=== PATIENT | female | born 1940 | race Caucasian/White ===

== ENCOUNTER → 2017-08-07 | Outpatient (REF) | payer MEDICARE, OTHER ==
[2017-08-07 12:23] LABS: BASO % 0.5 % (0.0-1.0); EOS # 0.5 10^3/uL (0.0-0.50); EOS % 9.4 % (0.0-3.0); IMMATURE GRANULOCYTE % 0.2 % (0-0); LYMPH # 2.2 10^3/uL (1.5-4.5); LYMPH % 39.8 % (24.0-44.0); MEAN CORPUSCULAR HEMOGLOBIN 31.2 pg (27.0-33.0); MEAN CORPUSCULAR HGB CONC 32.5 g/dl (32.0-36.5); MEAN CORPUSCULAR VOLUME 95.9 fl (80.0-96.0); MONO # 0.4 10^3/uL (0.0-0.8); MONO % 6.5 % (0.0-5.0); NEUTROPHILS # 2.4 10^3/uL (1.8-7.7); NEUTROPHILS % 43.6 % (36.0-66.0); PLATELET COUNT, AUTOMATED 271 10^3/uL (150-450); RED CELL DISTRIBUTION WIDTH 14.2 % (11.5-14.5); WHITE BLOOD COUNT 5.5 10^3/uL (4.0-10.0)
[2017-08-07 13:17] LABS: ALBUMIN 3.6 GM/DL (3.2-5.2); ALBUMIN/GLOBULIN RATIO 1.03 (1.00-1.93); ALKALINE PHOSPHATASE 99 U/L (45-117); ALT/SGPT 29 U/L (12-78); ANION GAP 7 MEQ/L (8-16); AST/SGOT 16 U/L (15-37); BILIRUBIN,TOTAL 0.4 MG/DL (0.2-1.0); BLOOD UREA NITROGEN 16 MG/DL (7-18); CALCIUM LEVEL 9.1 MG/DL (8.8-10.2); CARBON DIOXIDE LEVEL 29 MEQ/L (21-32); CHLORIDE LEVEL 104 MEQ/L (98-107); CHOLESTEROL LEVEL 206 MG/DL (<200); GLOMERULAR FILTRATION RATE > 60.0 (>39); GLUCOSE, FASTING 99 MG/DL (83-110); POTASSIUM SERUM 4.1 MEQ/L (3.5-5.1); SODIUM LEVEL 140 MEQ/L (136-145); TOTAL PROTEIN 7.1 GM/DL (6.4-8.2); TRIGLYCERIDES LEVEL 199 MG/DL (<150)
== END ==
LOC: M LABDRAW1 10:52
PROVIDERS: ATTEND Family Medicine
DX: E78.2 Mixed hyperlipidemia (principal); M81.8 Other osteoporosis without current pathological fracture; E55.9 Vitamin D deficiency, unspecified

== ENCOUNTER 2018-02-15 17:35 | Emergency (ER) | payer MEDICARE, OTHER ==
[2018-02-15 18:53] LABS: BASO % 0.1 % (0.0-1.0); HEMATOCRIT 38.7 % (36.0-47.0); HEMOGLOBIN 13.2 g/dl (12.0-15.5); IMMATURE GRANULOCYTE % 0.5 % (0-3.0); LYMPH # 0.7 10^3/uL (1.5-4.5); MEAN CORPUSCULAR HEMOGLOBIN 32.1 pg (27.0-33.0); MEAN CORPUSCULAR HGB CONC 34.1 g/dl (32.0-36.5); MEAN CORPUSCULAR VOLUME 94.2 fl (80.0-96.0); MONO # 0.5 10^3/uL (0.0-0.8); MONO % 5.1 % (0.0-5.0); NEUTROPHILS # 8.3 10^3/uL (1.8-7.7); NEUTROPHILS % 87.3 % (36.0-66.0); PLATELET COUNT, AUTOMATED 178 10^3/uL (150-450); RED BLOOD COUNT 4.11 10^6/uL (4.00-5.40); WHITE BLOOD COUNT 9.5 10^3/uL (4.0-10.0)
[2018-02-15 19:14] LABS: ALBUMIN 3.6 GM/DL (3.2-5.2); ALBUMIN/GLOBULIN RATIO 0.95 (1.00-1.93); ALKALINE PHOSPHATASE 69 U/L (45-117); ALT/SGPT 21 U/L (12-78); ANION GAP 5 MEQ/L (8-16); AST/SGOT 18 U/L (7-37); BILIRUBIN,DIRECT 0.1 MG/DL (0.0-0.2); BILIRUBIN,TOTAL 0.6 MG/DL (0.2-1.0); BLOOD UREA NITROGEN 19 MG/DL (7-18); CALCIUM LEVEL 8.9 MG/DL (8.8-10.2); CARBON DIOXIDE LEVEL 29 MEQ/L (21-32); CHLORIDE LEVEL 105 MEQ/L (98-107); GLOMERULAR FILTRATION RATE 57.5 (>39); GLUCOSE, FASTING 130 MG/DL (70-100); SODIUM LEVEL 139 MEQ/L (136-145); THYROID STIMULATING HORMONE 0.744 uIU/ML (0.358-3.740); TOTAL PROTEIN 7.4 GM/DL (6.4-8.2)
[2018-02-15] MEDS: NS 500 ML IV (20:05)
[2018-02-15 22:31] LABS: KETONE, URINE AUTO RFX NEGATIVE (NEGATIVE); MUCUS, URINE RFX LARGE (NEGATIVE); NITRITE, URINE AUTO RFX NEGATIVE (NEGATIVE); RBC, URINE AUTO RFX 5 /HPF (0-3); SPECIFIC GRAVITY UR AUTO RFX 1.026 (1.002-1.035); SQUAM EPITHELIAL CELL UR AURFX 0 /HPF (0-6); WBC, URINE AUTO RFX 2 /HPF (0-3)
[2018-02-15 22:32] LABS: LEUKOCYTE ESTERASE UR AUTO RFX TRACE (NEGATIVE)
[2018-02-15] MEDS: CIPROFLOXACIN 500 MG TAB PO (23:45)
[2018-02-16 02:52] LABS: BEDSIDE GLUCOSE 118 MG/DL (83-110)
== END 2018-02-15 23:53 | disposition home or self-care (01) ==
LOC: M ED 17:35
DX: N39.0 Urinary tract infection, site not specified (principal); I45.19 Other right bundle-branch block; F41.1 Generalized anxiety disorder; F33.9 Major depressive disorder, recurrent, unspecified; Z79.899 Other long term (current) drug therapy; Z88.5 Allergy status to narcotic agent; F17.210 Nicotine dependence, cigarettes, uncomplicated
CPT/HCPCS: 71046

== ENCOUNTER → 2018-07-26 | Outpatient (REF) | payer MEDICARE ==
[2018-07-26 13:25] LABS: BASO % 0.5 % (0.0-1.0); EOS # 0.2 10^3/uL (0.0-0.50); EOS % 3.6 % (0.0-3.0); HEMATOCRIT 39.3 % (36.0-47.0); HEMOGLOBIN 12.9 g/dl (12.0-15.5); IMMATURE GRANULOCYTE % 0.3 % (0-3.0); LYMPH # 2.6 10^3/uL (1.5-4.5); LYMPH % 42.6 % (24.0-44.0); MEAN CORPUSCULAR HEMOGLOBIN 32.7 pg (27.0-33.0); MEAN CORPUSCULAR HGB CONC 32.8 g/dl (32.0-36.5); MEAN CORPUSCULAR VOLUME 99.5 fl (80.0-96.0); MONO # 0.5 10^3/uL (0.0-0.8); MONO % 8.1 % (0.0-5.0); NEUTROPHILS # 2.8 10^3/uL (1.8-7.7); NEUTROPHILS % 44.9 % (36.0-66.0); PLATELET COUNT, AUTOMATED 235 10^3/uL (150-450); RED BLOOD COUNT 3.95 10^6/uL (4.00-5.40); RED CELL DISTRIBUTION WIDTH 13.1 % (11.5-14.5); WHITE BLOOD COUNT 6.2 10^3/uL (4.0-10.0)
[2018-07-26 13:42] LABS: ALBUMIN/GLOBULIN RATIO 1.25 (1.00-1.93); ALKALINE PHOSPHATASE 70 U/L (45-117); ALT/SGPT 28 U/L (12-78); ANION GAP 5 MEQ/L (8-16); AST/SGOT 21 U/L (7-37); BILIRUBIN,TOTAL 0.4 MG/DL (0.2-1.0); BLOOD UREA NITROGEN 25 MG/DL (7-18); CALCIUM LEVEL 8.9 MG/DL (8.8-10.2); CARBON DIOXIDE LEVEL 28 MEQ/L (21-32); CHLORIDE LEVEL 110 MEQ/L (98-107); CREATININE FOR GFR 0.82 MG/DL (0.55-1.30); GLOMERULAR FILTRATION RATE > 60.0 (>39); GLUCOSE, FASTING 95 MG/DL (70-100); POTASSIUM SERUM 4.6 MEQ/L (3.5-5.1); RHEUMATOID FACTOR QUANT < 10.0 IU/ML (<15.0); SODIUM LEVEL 143 MEQ/L (136-145); TOTAL PROTEIN 7.2 GM/DL (6.4-8.2)
[2018-07-26 14:10] LABS: ESTIMATED AVERAGE GLUCOSE 111 MG/DL (60-110); HEMOGLOBIN A1c 5.5 %
[2018-07-26 14:15] LABS: ERYTHROCYTE SEDIMENTATION RATE 25 mm/hr (0-30)
[2018-07-26 15:51] LABS: FOLATE > 24.0 NG/ML
[2018-07-28 14:13] LABS: VITAMIN E(ALPHA TOCOPHEROL) 19.6 mg/L (9.0-29.0); VITAMIN E(GAMMA TOCOPHEROL) 1.4 mg/L (0.5-4.9)
[2018-07-30 00:06] LABS: ANTINUCLEAR ANTIBODIES DIRECT Negative (Negative); COPPER PLASMA 125 ug/dL (72-166); LEAD BLOOD ADULT <1 ug/dL (0-4); MERCURY LEVEL 1.2 ug/L (0.0-14.9)
[2018-07-30 09:51] LABS: DRVV SCREEN 38.1 SEC
[2018-07-30 10:05] LABS: PTT LUPUS TYPE ANTICOAG SCREEN 0.9 (0-1.2)
[2018-07-30 13:42] LABS: ALBUMIN 4.52 GM/DL (3.29-5.55); ALBUMIN % 62.8 % (55.8-66.1); ALPHA-1-GLOBULIN % 3.9 % (2.9-4.9); ALPHA-1-GLOBULINS 0.28 GM/DL (0.17-0.41); ALPHA-2-GLOBULINS 0.68 GM/DL (0.42-0.99); ALPHA-2-GLOBULINS % 9.4 % (7.1-11.8); BETA-1-GLOBULINS 0.48 GM/DL (0.28-0.60); BETA-1-GLOBULINS % 6.6 % (4.7-7.2); BETA-2-GLOBULINS 0.37 GM/DL (0.19-0.55); BETA-2-GLOBULINS % 5.1 % (3.2-6.5); GAMMA GLOBULIN % 12.2 % (11.1-18.8); GAMMA GLOBULINS 0.88 GM/DL (0.65-1.58)
[2018-07-31 08:48] LABS: CERULOPLASMIN 29.4 mg/dL (19.0-39.0); VITAMIN B1 LEVEL WHOLE BLOOD 166.8 nmol/L (66.5-200.0)
== END ==
LOC: M LABNEURO 09:19
DX: G62.9 Polyneuropathy, unspecified (principal)
CPT/HCPCS: 82525

== ENCOUNTER → 2018-08-29 | Outpatient (REF) | payer MEDICARE | LOC: M LAB REF 13:42 | DX: R35.0 Frequency of micturition (principal); R30.0 Dysuria | CPT/HCPCS: 87186 ==

== ENCOUNTER 2018-12-09 07:17 | Day surgery (SDC) | payer MEDICARE ==
[~2018-12-09] VITALS: Ht 157.5 cm; Wt 77.3 kg
[~2018-12-09 07:17] MED LIST: ARTI99.0 OU; AZOP0.2S OD; BIMA01SOL OU; BUPR150T5; BUPR15TASR PO; CEFD300CAP PO; CIPR-249 PO; LIDOCAINE 2% INJ 100 MG/5 ML SDV (FOR ANES.) As Ordered ONE; LR 1,000 ML IV ONE; MIDAZOLAM INJ 2 MG/2 ML VIAL (J2250) As Ordered ONE; ONDANSETRON 4MG/2ML VIAL (J2405) As Ordered ONE; PROPOFOL 200 MG/20 ML VIAL As Ordered ONE; ROCURONIUM BROMIDE 50 MG/5 ML VIAL As Ordered ONE; SERT-138; SERT-138 PO; SYST1SOL OU; TIMO0.5S29 OD; VITA200016 PO; VITMTA PO; dexameTHASONE 4 MG/ML 1ML VIAL (J1100) As Ordered ONE; fentaNYL 100 MCG/2 ML INJECTION (J3010) As Ordered ONE
[2018-12-09] MEDS ORDERED: BUPIVACAINE/EPIN 0.25% 30 ML VIAL As Ordered ONE (08:32)
[2018-12-09] MEDS ORDERED: ePHEDrine SULFATE 25 MG/5 ML(5MG/ML) SYRINGE As Ordered ONE (09:03)
[2018-12-09] MEDS ORDERED: PHENYLephrine HCL 500 MCG/5 ML (100MCG/ML) SYRINGE (J2370) As Ordered ONE (09:03)
[2018-12-09] MEDS ORDERED: SUGAMMADEX SODIUM 500 MG/5 ML VIAL (BRIDION) As Ordered ONE (09:08)
[2018-12-09] MEDS ORDERED: fentaNYL 100 MCG/2 ML INJECTION (J3010) IV PRN (10:00)
[2018-12-09] MEDS ORDERED: HYDROMORPHONE HCL 0.5 MG/ 0.5 ML SYRINGE (J1170 PER 1) IV PRN (10:00)
[2018-12-09] MEDS ORDERED: LR 1,000 ML IV SCH (10:00)
[2018-12-09] MEDS ORDERED: NORCO, ANEXSIA 5/325MG TABLET (HYDROcodone/ACETAMINOPHEN) PO PRN (10:00)
[2018-12-09] MEDS ORDERED: PERCOCET 5MG/325MG TAB PO PRN (10:00)
[2018-12-09 12:15] VITALS: BP 146/69
--- NOTE | 2018-12-10 16:54 | RO ---
DATE OF PROCEDURE: 12/09/2018 PREOPERATIVE DIAGNOSIS: Symptomatic cholelithiasis. POSTOPERATIVE DIAGNOSIS: Symptomatic cholelithiasis. PROCEDURE: Laparoscopic cholecystectomy. SURGEON: Dr. Conteh CARTRIDGE FILLER: Dr. Gonzalez who assisted with retraction and visualization of the gallbladder. ANESTHESIA: General. ESTIMATED BLOOD LOSS: 5. COMPLICATIONS: None. INDICATIONS FOR PROCEDURE: The patient is a 78-year-old female presents status post choledocholithiasis with ERCP while she was inpatient hospital. She still having persistent right upper quadrant abdominal pains and right shoulder pain. Recommendation was to proceed with laparoscopic possible open cholecystectomy. Risks and benefits of the procedure not limited but including bleeding, infection, hernia formation, damage to surrounding structure need for further surgery were discussed in detail with the patient and informed consent was obtained procedure was planned. PROCEDURE: The patient brought back to operating room two. After sufficient sedation, the abdomen sterilely prepped and draped. Next time-out was done confirm proper patient and proper procedure. Following that a stab incision was made in the left upper quadrant. Veress needle was inserted and the abdomen was insufflated to 50 mmHg. Next Veress needle was removed and 5 mm Optiview port used to gain access to the abdomen supraumbilically in the midline. An 11 mm port was then placed subxiphoid and two 5 mm ports in the right upper quadrant. The fundus of gallbladder grasped, elevated up towards right shoulder. Cystic duct and cystic artery were easily identified and they are both doubly clipped and cut. Gallbladder was then removed from the gallbladder fossa using electrocautery brought out through the subxiphoid port site in a 10 mm EndoCatch bag. Due to the large gallbladder and having to open the incision to remove the abdomen, I did place an interrupted 0 Vicryl suture to reapproximate the fascia at the subxiphoid port site. Once that was completed the abdomen was desufflated. Skin incisions closed 4-0 Vicryl subcuticular sutures. The abdomen cleaned and dried. Steri-Strips, 4x4 and tape were applied thus ending procedure.
== END 2018-12-09 12:22 | disposition home or self-care (01) ==
LOC: M SDC 07:17
PROVIDERS: ATTEND Surgery
DX: K80.18 Calculus of gallbladder with other cholecystitis without obstruction (principal); F41.9 Anxiety disorder, unspecified; F32.9 Major depressive disorder, single episode, unspecified; Z87.891 Personal history of nicotine dependence; Z88.5 Allergy status to narcotic agent; Z79.899 Other long term (current) drug therapy
CPT/HCPCS: 47562; 88304; J1100; J2250; J2370; J2405; J3010

== ENCOUNTER → 2019-02-14 | Outpatient (REF) | payer MEDICARE ==
[~2019-02-14] MED LIST changes: -LIDOCAINE 2% INJ 100 MG/5 ML SDV (FOR ANES.) As Ordered ONE; -LR 1,000 ML IV ONE; -MIDAZOLAM INJ 2 MG/2 ML VIAL (J2250) As Ordered ONE; -ONDANSETRON 4MG/2ML VIAL (J2405) As Ordered ONE; -PROPOFOL 200 MG/20 ML VIAL As Ordered ONE; -ROCURONIUM BROMIDE 50 MG/5 ML VIAL As Ordered ONE; -dexameTHASONE 4 MG/ML 1ML VIAL (J1100) As Ordered ONE; -fentaNYL 100 MCG/2 ML INJECTION (J3010) As Ordered ONE
[2019-02-14 14:23] LABS: BASO % 0.5 % (0.0-1.0); EOS # 0.2 10^3/uL (0.0-0.50); EOS % 2.9 % (0.0-3.0); HEMATOCRIT 40.2 % (36.0-47.0); HEMOGLOBIN 13.3 g/dl (12.0-15.5); LYMPH # 2.4 10^3/uL (1.5-4.5); LYMPH % 41.5 % (24.0-44.0); MEAN CORPUSCULAR HEMOGLOBIN 32.4 pg (27.0-33.0); MEAN CORPUSCULAR HGB CONC 33.1 g/dl (32.0-36.5); MONO # 0.5 10^3/uL (0.0-0.8); NEUTROPHILS # 2.7 10^3/uL (1.8-7.7); NEUTROPHILS % 45.9 % (36.0-66.0); PLATELET COUNT, AUTOMATED 252 10^3/uL (150-450); WHITE BLOOD COUNT 5.8 10^3/uL (4.0-10.0)
[2019-02-14 14:34] LABS: ALT/SGPT 22 U/L (12-78); BILIRUBIN,TOTAL 0.4 MG/DL (0.2-1.0); BLOOD UREA NITROGEN 22 MG/DL (7-18); CALCIUM LEVEL 8.8 MG/DL (8.8-10.2); CARBON DIOXIDE LEVEL 27 MEQ/L (21-32); CHLORIDE LEVEL 107 MEQ/L (98-107); CREATININE FOR GFR 0.62 MG/DL (0.55-1.30); GLOMERULAR FILTRATION RATE > 60.0 (>39); GLUCOSE, FASTING 89 MG/DL (70-100); POTASSIUM SERUM 4.5 MEQ/L (3.5-5.1); SODIUM LEVEL 141 MEQ/L (136-145); TOTAL PROTEIN 7.3 GM/DL (6.4-8.2)
== END ==
LOC: M LABDRAW1 10:33
PROVIDERS: ATTEND Family Medicine
DX: R19.7 Diarrhea, unspecified (principal)